=== PATIENT | female | born 1980 | race American Indian/Alaskan Native ===

== ENCOUNTER 2018-05-02 07:48 | Day surgery (SDC) | payer BC ==
[2018-05-02 08:56] LABS: Blood Urea Nitrogen 13 mg/dL (7-17)
[2018-05-02] MEDS ORDERED: NACL 0.9% 50 ML ONE (09:34)
[2018-05-02] MEDS ORDERED: ATROPINE 0.1% (CARDIAC) ONE (09:36)
[2018-05-02] MEDS ORDERED: NITROSTAT SL ONE ×2 (09:37→10:30)
[2018-05-02] MEDS ORDERED: LOPRESSOR IV ONE (09:37)
[2018-05-02 10:31] VITALS: BP 109/76
--- NOTE | 2018-05-02 11:47 | Cat Scan Report ---
LIMITED CT OF THE CHEST PER CT CORONARY ANGIOGRAPHY PROTOCOL: History: Chest pain. Limited CT of the chest per CT coronary angiography protocol is submitted. The cardiac portion of the exam has been previously interpreted by the [employer]. The included portions of the lungs appear clear without evidence for nodule, mass or infiltrate. The included pleural spaces are clear. No mediastinal or hilar adenopathy is evident. Included upper abdomen and solid abdominal organs are grossly within normal limits. IMPRESSION: Unremarkable limited CT of the chest as noted.
== END 2018-05-02 10:35 | disposition home or self-care (01) ==
LOC: CATHLABREC 07:48 → EDSTATUS 08:45 → CATHLABREC 10:35
PROVIDERS: ATTEND Internal Medicine
DX: R07.89 Other chest pain (principal); J45.909 Unspecified asthma, uncomplicated; F17.200 Nicotine dependence, unspecified, uncomplicated
CPT/HCPCS: 36415; 75574; 82565; 84520; Q9967; J0461

== ENCOUNTER 2021-06-27 21:47 | Emergency (ER) | payer SELFPAY ==
[2021-06-27 23:33] VITALS: BP 122/85
== END 2021-06-28 00:01 ==
LOC: ED 21:47
DX: U07.1 COVID-19 (principal); R06.02 Shortness of breath; R07.9 Chest pain, unspecified; Z53.21 Procedure and treatment not carried out due to patient leaving prior to being seen by health care provider